=== PATIENT | female | born 1960 | race Caucasian/White ===

== ENCOUNTER → 2023-11-10 | Outpatient (CLI) | payer BC ==
[~2023-11-10] MED LIST: PROHANCE 279.3MG/ML 15ML VIAL ONE
== END ==
LOC: M PLAIMG 12:45
PROVIDERS: ATTEND Specialist
DX: R42 Dizziness and giddiness (principal); M50.00 Cervical disc disorder with myelopathy, unspecified cervical region

== ENCOUNTER → 2024-11-07 | Outpatient (CLI) | payer BC | LOC: M SOG 07:22 | PROVIDERS: ATTEND Neuromusculoskeletal Medicine, Sports Medicine | DX: M65.311 Trigger thumb, right thumb (principal) ==

== ENCOUNTER 2024-11-25 09:59 | Day surgery (SDC) | payer MEDICARE ==
[~2024-11-25] VITALS: Ht 162.6 cm; Wt 55.0 kg
[~2024-11-25 09:59] MED LIST changes: +CELE0.09 PO; +ESTR0.1C5; +FAMO40TA3 PO; +GAVICHW5 PO; +LEVA45AE; +NYST-38; -PROHANCE 279.3MG/ML 15ML VIAL ONE; +QVAR40AE12; +ROSU5TAB49 PO; +SPIR12.9; +VALA-3 PO
[2024-11-25] MEDS: LR 1,000 ML IV SCH (10:53)
[2024-11-25] MEDS ORDERED: LIDOCAINE 2% 100 MG/5 ML SDV (FOR ANES.) As Ordered ONE (12:52)
[2024-11-25] MEDS ORDERED: MIDAZOLAM INJ 2 MG/2 ML VIAL As Ordered ONE (12:53)
[2024-11-25] MEDS ORDERED: GLYCOPYRROLATE INJ 0.2 MG/ML 2 ML VIAL As Ordered ONE (13:29)
[2024-11-25] MEDS: ceFAZolin SOD 2 GM IV ONCE IV ONE (13:55)
[2024-11-25] MEDS ORDERED: KETOROLAC 30 MG/ML 1 ML VIAL As Ordered ONE (14:29)
[2024-11-25] MEDS: LIDOCAINE 1% MDV 20 ML VIAL As Ordered ONE (14:30)
[2024-11-25] MEDS ORDERED: MORPHINE 4 MG/ML 1 ML VIAL IV PRN (14:40)
[2024-11-25] MEDS ORDERED: ONDANSETRON 4MG 2ML VIAL IV PRN (14:40)
[2024-11-25 15:45] VITALS: BP 153/71; TEMP 98.1; O2SAT 97
== END 2024-11-25 16:15 | disposition home or self-care (01) ==
LOC: M SDC 09:59
PROVIDERS: ATTEND Neuromusculoskeletal Medicine, Sports Medicine
DX: G56.01 Carpal tunnel syndrome, right upper limb (principal); M65.311 Trigger thumb, right thumb; G47.30 Sleep apnea, unspecified; Z88.1 Allergy status to other antibiotic agents; Z88.2 Allergy status to sulfonamides; Z87.891 Personal history of nicotine dependence
CPT/HCPCS: 26055; 64721; J0688; J1596; J1885; J2250; J3010